=== PATIENT | female | born 1960 | race Caucasian/White ===

== ENCOUNTER 2017-11-20 07:52 | Emergency (ER) | payer MEDICAID ==
[~2017-11-20] VITALS: Ht 167.6 cm; Wt 62.8 kg
[2017-11-20 08:01] VITALS: Ht 167.6 cm; Wt 62.8 kg
[2017-11-20 09:37] VITALS: BP 111/70
== END 2017-11-20 09:37 | disposition home or self-care (01) ==
LOC: ED 07:52
DX: B34.9 Viral infection, unspecified (principal)
CPT/HCPCS: 87804